=== PATIENT | male | born 1980 | race Caucasian/White ===

== ENCOUNTER 2021-05-26 08:46 | Emergency (ER) | payer OTHER ==
[~2021-05-26] VITALS: Ht 188 cm; Wt 113.4 kg
[2021-05-26] MEDS ORDERED: VERAPAMIL ER100 MG PO (08:52)
[2021-05-26] MEDS ORDERED: LISINOPRIL10 MG PO (08:53)
[2021-05-26] MEDS ORDERED: SUMATRIPTAN (08:53)
[2021-05-26 09:08] LABS: ABSOLUTE BASOPHILS 0.1 thou/uL (0.0-0.2); ABSOLUTE EOSINOPHILS 0.2 thou/uL (0.0-0.7); ABSOLUTE LYMPHOCYTES 2.3 thou/uL (0.8-5.3); ABSOLUTE MONOCYTES 0.8 thou/uL (0.0-1.2); ABSOLUTE NEUTROPHILS 7.2 thou/uL (1.6-8.1); BASOPHILS 0.8 %; EOSINOPHILS 1.6 %; HEMATOCRIT 43.8 % (42.0-52.0); HEMOGLOBIN 15.5 gm/dL (14.0-18.0); LYMPHOCYTES 21.7 %; MCH 30.2 pg (26.0-34.0); MCHC 35.5 g/dL (28.0-37.0); MCV 85.1 fL (80.0-100.0); MONOCYTES 7.6 %; MPV 7.4 fl. (7.2-11.1); NUCLEATED RBCS 0 /100WBC; PLATELET COUNT* 325 thou/uL (150-400); POLYS 68.3 %; RBC 5.14 mil/uL (4.50-6.00); RDW-CV 13.2 % (10.5-14.5); WBC 10.6 thou/uL (4.0-11.0)
[2021-05-26 09:23] LABS: CALCIUM 9.1 mg/dL (8.5-10.1); CREATININE 1.1 mg/dL (0.6-1.3); POTASSIUM 3.3 mmol/L (3.5-5.1)
[2021-05-26 09:28] LABS: ALBUMIN 4.6 g/dL (3.4-5.0); TOTAL BILIRUBIN 0.8 mg/dL (<0.1-1.0); TOTAL PROTEIN 8.3 g/dL (6.4-8.2)
[2021-05-26 09:50] VITALS: BP 150/111
--- NOTE | 2021-05-27 09:28 | EKG ---
[place] [address] ELECTROCARDIOGRAM REPORT Name: VU KRUSE Room: [facility]#: [id number] Admission: 05/26/21 Attend Phys: Discharge: 05/26/21 Date of : 82 Date of Service: 05/26/21913 Report #: [id number] THIS REPORT FOR: //name// [facility] ED Test Date: 2021-05-26 Test Time: 09:14:00 Pat Name: VU KRUSE Department: Room: Gender: Presser First: SOBEIDA : 1980 Requested By: Bradley Garcia Order Number: [id number] MD: Mason Terry Measurements Intervals [place] Rate: 78 P: 11 AK: 165 QRS: 5 QRSD: 96 T: 1 QT: 391 QTc: 446 Interpretive Statements Sinus arrhythmia Multiple ventricular premature complexes Probable left ventricular hypertrophy Borderline T abnormalities, inferior leads No previous ECG available for comparison Electronically Signed On 05-27-2021 9:28:06 CDT by Mason Terry [email or web address] <ELECTRONICALLY SIGNED> By: Mason Terry MD, [facility] 05/27/21 0928 3 3 Mason Terry MD, [facility] /EPI
== END 2021-05-26 09:50 | disposition home or self-care (01) ==
LOC: M.ERS 08:46
PROVIDERS: Family Medicine
DX: Z77.098 Contact with and (suspected) exposure to other hazardous, chiefly nonmedicinal, chemicals (principal); I10 Essential (primary) hypertension; Z79.899 Other long term (current) drug therapy

== ENCOUNTER 2021-05-27 21:01 | Emergency (ER) | payer OTHER ==
[~2021-05-27] VITALS: Ht 182.9 cm; Wt 120.7 kg
[~2021-05-27 21:01] MED LIST: LISINOPRIL10 MG PO; SUMATRIPTAN; VERAPAMIL ER100 MG PO
[2021-05-27 21:39] LABS: ABSOLUTE EOSINOPHILS 0.2 thou/uL (0.0-0.7); ABSOLUTE LYMPHOCYTES 2.9 thou/uL (0.8-5.3); ABSOLUTE NEUTROPHILS 7.6 thou/uL (1.6-8.1); BASOPHILS 0.2 %; EOSINOPHILS 1.6 %; HEMATOCRIT 42.6 % (42.0-52.0); HEMOGLOBIN 14.4 gm/dL (14.0-18.0); LYMPHOCYTES 24.8 %; MCH 29.1 pg (26.0-34.0); MCHC 33.8 g/dL (28.0-37.0); MCV 86.1 fL (80.0-100.0); MONOCYTES 8.8 %; MPV 7.6 fl. (7.2-11.1); NUCLEATED RBCS 0 /100WBC; PLATELET COUNT* 337 thou/uL (150-400); POLYS 64.6 %; RBC 4.95 mil/uL (4.50-6.00); RDW-CV 13.9 % (10.5-14.5); WBC 11.7 thou/uL (4.0-11.0)
[2021-05-27 21:46] LABS: URINE BILIRUBIN NEGATIVE (Negative); URINE BLOOD NEGATIVE (Negative); URINE CLARITY CLEAR; URINE COLOR YELLOW; URINE GLUCOSE-RANDOM NEGATIVE (Negative); URINE KETONES NEGATIVE (Negative); URINE LEUKOCYTES-REFLEX NEGATIVE (Negative); URINE NITRITE-REFLEX NEGATIVE (Negative); URINE PROTEIN NEGATIVE (Negative); URINE SPECIFIC GRAVITY 1.025 (1.005-1.030); URINE UROBILINOGEN 0.2 E.U./dl (0.2-1.0)
[2021-05-27 21:47] LABS: CALCIUM 8.5 mg/dL (8.5-10.1); CREATININE 1.1 mg/dL (0.6-1.3); POTASSIUM 3.4 mmol/L (3.5-5.1)
[2021-05-27 21:53] LABS: AMP/METHAMP Negative (Negative); BARBITURATES Negative (Negative); BENZODIAZEPINES Negative (Negative); COCAINE Negative (Negative); METHADONE Negative (Negative); OPIATES Negative (Negative); PCP Negative (Negative); THC Negative (Negative)
[2021-05-27 23:06] VITALS: BP 158/98
--- NOTE | 2021-05-28 11:42 | EKG ---
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1980 Requested By: Rafaela Tse Order Number: [id number] MD: Luis Carlos Barrett Measurements Intervals [place] Rate: 72 P: 12 AR: 175 QRS: 17 QRSD: 95 T: 1 QT: 374 QTc: 410 Interpretive Statements Sinus rhythm Baseline wander in lead(s) II,III,aVF Compared to ECG 05/26/2021 09:14:00 Sinus arrhythmia no longer present Ventricular premature complex(es) no longer present T-wave abnormality no longer present Electronically Signed On 05-28-2021 11:41:55 CDT by Luis Carlos Barrett [email or web address] <ELECTRONICALLY SIGNED> By: Carole Barrett MD, [facility] 05/28/21 1141 07 07 Carole Barrett MD, [facility] /EPI
== END 2021-05-27 23:07 | disposition home or self-care (01) ==
LOC: M.ERS 21:01
PROVIDERS: Emergency Medicine
DX: R07.89 Other chest pain (principal); I10 Essential (primary) hypertension; Z79.899 Other long term (current) drug therapy